=== PATIENT | female | born 1990 | race Caucasian/White ===

== ENCOUNTER 2017-07-12 20:30 | Inpatient (IN) | payer MEDICAID ==
[~2017-07-12] VITALS: Ht 170.2 cm; Wt 89.0 kg
[~2017-07-12 20:30] MED LIST: CEFAZOLIN 1,000 MG ONE; DEXAMETHASONE 4 MG/ML, 1ML ONE; ETOMIDATE 40 MG/20 ML ONE; GLYCOPYRROLATE 0.2MG/1ML, 5ML ONE; NEOSTIGMINE 1 MG/ML, 10ML ONE; ONDANSETRON 2MG/ML, 2ML ONE; PHENYLEPHRINE 10 MG/ML ONE; ROCURONIUM 10 MG/ML,10ML ONE; SUCCINYLCHOLINE 20 MG/ML, 10ML ONE
[2017-07-12] MEDS ORDERED: HYDROmorphone 1 MG/ML, 1ML IVPush PRN (21:00)
[2017-07-12] MEDS ORDERED: SODIUM CHLORIDE FLUSH 10ML SYR IVF ONE (21:00)
[2017-07-12] MEDS ORDERED: PLEASE ENTER ALLERGIES MC SCH ×4 (21:00)
[2017-07-12] MEDS ORDERED: ONDANSETRON 2MG/ML, 2ML IVPush ONE (21:00)
[2017-07-12] MEDS ORDERED: SODIUM CHLORIDE 0.9% 1,000ML IVBOLUS ONE ×2 (21:00)
[2017-07-12] MEDS ORDERED: ONDANSETRON 2MG/ML, 2ML ONE (21:02)
[2017-07-12] MEDS ORDERED: HYDROmorphone 2 MG/ML, 1ML ONE (21:02)
[2017-07-12 21:29] LABS: BLOOD UREA NITROGEN 15 mg/dL (7-18)
[2017-07-12 21:35] LABS: ASPARTATE AMINO TRANSFERASE 15 U/L (15-37)
[2017-07-12 21:36] LABS: HEMATOCRIT 27.3 % (34.6-47.8); HEMOGLOBIN 9.3 g/dL (11.7-16.4); WHITE BLOOD COUNT 17.7 x10^3/uL (3.4-10)
[2017-07-12] MEDS ORDERED: BUPIVACAINE/PF 0.25% ONE (21:44)
[2017-07-12] MEDS ORDERED: SILVER NITRATE STICK TP ONE (21:45)
[2017-07-12] MEDS ORDERED: EPINEPHRINE 1 MG/ML, 1ML ONE (21:45)
[2017-07-12] MEDS ORDERED: FENTANYL PF 250 MCG/5ML ONE (21:54)
[2017-07-12] MEDS ORDERED: MIDAZOLAM 1 MG/ML, 2ML ONE (21:54)
[2017-07-12] MEDS ORDERED: BUPIVACAINE/PF-EPI 0.25% 1:200K INFIL ONE (22:30)
[2017-07-12] MEDS ORDERED: HYDROmorphone 1 MG/ML, 1ML ONE (23:13)
[2017-07-12] MEDS ORDERED: LABETALOL 5MG/ML, 20ML IV PRN (23:30)
[2017-07-12] MEDS ORDERED: LORazepam 2 MG/ML, 1ML IVPush PRN (23:30)
[2017-07-12] MEDS ORDERED: ACETAMINOPHEN 325 MG TABLET PO PRN (23:30)
[2017-07-12] MEDS ORDERED: HYDROmorphone 1 MG/ML, 1ML IV PRN (23:30)
[2017-07-12] MEDS ORDERED: OXYcodone 5 MG/5 ML ORAL.SOL UDC PO PRN (23:30)
[2017-07-12] MEDS ORDERED: PROMETHAZINE 25 MG/ML, 1ML IV PRN (23:30)
[2017-07-12] MEDS ORDERED: hydrALAzine 20 MG/ML, 1ML IV PRN (23:30)
[2017-07-12] MEDS ORDERED: MEPERIDINE/PF 25MG/0.5ML IVPush PRN (23:30)
[2017-07-12] MEDS ORDERED: ALBUTEROL SULFATE 2.5 MG/3 ML NPPB PRN (23:30)
[2017-07-12] MEDS ORDERED: FENTANYL PF 100 MCG/2ML IV PRN (23:30)
[2017-07-12] MEDS ORDERED: OXYcodone 5 MG/5 ML ORAL.SOL UDC ONE (23:57)
[2017-07-12] MEDS ORDERED: ACETAMINOPHEN 650 MG/20.3 ML UDC ONE (23:57)
[2017-07-13] VITALS (10 sets, daily range): BP systolic 87–111; BP diastolic 42–70
[2017-07-13] MEDS ORDERED: morphine SULFATE 10 MG/ML, 1ML IVPush PRN
[2017-07-13] MEDS ORDERED: ONDANSETRON 2MG/ML, 2ML IVPush PRN
[2017-07-13] MEDS ORDERED: KETOROLAC 30 MG/1 ML IVPush PRN
[2017-07-13] MEDS: NS + 20MEQ KCL 1,000 ML IV SCH ×3 (01:57→22:55)
[2017-07-13 05:38] LABS: HEMATOCRIT 25.4 % (34.6-47.8); HEMOGLOBIN 8.5 g/dL (11.7-16.4); WHITE BLOOD COUNT 18.3 x10^3/uL (3.4-10)
[2017-07-13] MEDS: DOCUSATE 100 MG CAPSULE PO SCH ×2 (08:42→19:54)
[2017-07-13 11:52] LABS: HEMOGLOBIN 7.8 g/dL (11.7-16.4); WHITE BLOOD COUNT 16.5 x10^3/uL (3.4-10)
[2017-07-13 11:56] LABS: HEMATOCRIT 22.5 % (34.6-47.8)
[2017-07-13] MEDS ORDERED: OXYcodone/APAP 5/325MG TABLET ONE (12:33)
[2017-07-13] MEDS: OXYcodone/APAP 5/325MG TABLET PO PRN (12:52)
[2017-07-13 16:29] LABS: HEMOGLOBIN 7.3 g/dL (11.7-16.4)
[2017-07-13 16:30] LABS: HEMATOCRIT 21.3 % (34.6-47.8)
[2017-07-14] VITALS (8 sets, daily range): BP systolic 95–112; BP diastolic 51–71
[2017-07-14 00:40] LABS: HEMATOCRIT 23.3 % (34.6-47.8); HEMOGLOBIN 7.8 g/dL (11.7-16.4)
[2017-07-14 07:43] LABS: HEMOGLOBIN 7.4 g/dL (11.7-16.4)
[2017-07-14] MEDS: OXYcodone/APAP 5/325MG TABLET PO PRN ×2 (07:47→15:00)
[2017-07-14] MEDS ORDERED: IBUP200T48 PO (10:05)
[2017-07-14] MEDS ORDERED: OXYC-302 PO (10:07)
[2017-07-14] MEDS: DOCUSATE 100 MG CAPSULE PO SCH ×2 (10:53→21:00)
[2017-07-14] MEDS: NS + 20MEQ KCL 1,000 ML IV SCH ×2 (10:53→23:25)
[2017-07-14 15:26] LABS: HEMATOCRIT 27.8 % (34.6-47.8); HEMOGLOBIN 9.4 g/dL (11.7-16.4); WHITE BLOOD COUNT 11.7 x10^3/uL (3.4-10)
[2017-07-15 01:19] VITALS: BP 100/56
[2017-07-15 05:28] LABS: HEMATOCRIT 26.7 % (34.6-47.8); HEMOGLOBIN 9.2 g/dL (11.7-16.4); WHITE BLOOD COUNT 12.7 x10^3/uL (3.4-10)
[2017-07-15 06:23] VITALS: BP 114/69
[2017-07-15] MEDS: DOCUSATE 100 MG CAPSULE PO SCH (08:12)
[2017-07-15] MEDS: NS + 20MEQ KCL 1,000 ML IV SCH (09:00)
[2017-07-15] MEDS ORDERED: IRON PO (09:50)
== END 2017-07-15 10:47 | disposition home or self-care (01) | DRG 777 ==
LOC: ED 21:50 → EDIP 22:00 → 4NOR 07-13 00:20 → DCLOUNGE 07-15 10:37
PROVIDERS: ADMIT Obstetrics & Gynecology Gynecology; ATTEND Obstetrics & Gynecology Gynecology
PROC: 30233N1 Transfusion of Nonautologous Red Blood Cells into Peripheral Vein, Percutaneous Approach (ICD-10-PCS; principal; 2017-07-13)
PROC: 10T24ZZ Resection of Products of Conception, Ectopic, Percutaneous Endoscopic Approach (ICD-10-PCS; 2017-07-13)
PROC: 0UB64ZZ Excision of Left Fallopian Tube, Percutaneous Endoscopic Approach (ICD-10-PCS; 2017-07-13)
DX: O00.102 Left tubal pregnancy without intrauterine pregnancy (principal); D62 Acute posthemorrhagic anemia; O26.51 Maternal hypotension syndrome, first trimester; O99.411 Diseases of the circulatory system complicating pregnancy, first trimester; O99.011 Anemia complicating pregnancy, first trimester; R00.0 Tachycardia, unspecified
CPT/HCPCS: 36415; 36430; 80053; 83690; 84702; 85014; 85018; 85025; 86850; 86900; 86923; 88305; 96374; J0171; J0690; J1100; J1170; J2250; J2405; J2710; J3010; J3480; J3490; J0330; J2270; J2370; J7030; P9016